=== PATIENT | female | born 1960 | race Caucasian/White ===

== ENCOUNTER 2019-12-08 08:06 | Outpatient (CLI) | payer OTHER, SELFPAY ==
--- NOTE | 2019-12-16 05:08 | SLEEP_ITS ---
Home Sleep Test DATE OF STUDY: 12/08/2019 REASON FOR THE STUDY: Hypersomnia, obstructive sleep apnea syndrome. HISTORY: This patient is a 59-year-old female, 5 feet 8 inches tall, weighing 232 pounds with a body mass index of 35.2. The office visit note indicates that she has type 2 diabetes mellitus, hyperlipidemia, and hypertension. The patient did not complete the sleep survey, so the specific problems associated with her sleep are not known. She is having this test as recommended by her physician. MEDICAL COMORBIDITIES: Diabetes mellitus type 2, hyperlipidemia, hypertension. MEDICATIONS: 1. Rosuvastatin 10 mg a day. 2. Glipizide XL 5 mg daily. 3. Metformin 500 mg, 2 tablets twice a day. 4. Invokana 300 mg daily. 5. Lisinopril 40 mg a day. 6. Aspirin 81 mg a day. HABITS: Former smoker. She does use alcohol. No mention of caffeine. DESCRIPTION OF THE STUDY: The [place] Sleepiness Scale was not completed. This is a portable home sleep test with 4 channel monitoring including respiratory effort channel, snoring channel, oxygen saturation channel, and heart rate channel. The study was scored using CMS guidelines. The apnea-hypopnea index is 14. The oxygen desaturation index is 13. The patient had 11 apneas, which were all obstructive, 86 hypopneas, 3282 snoring events and 96 desaturations spending 106 minutes below 88%, which was 24% of the study. Her minimum pulse was 72, maximum pulse was 130. Average pulse 101. The recording time was 7 hours and 7 minutes. IMPRESSION: This home sleep test shows at least mild to moderate obstructive sleep apnea syndrome with an apnea-hypopnea index of 14, significant desaturations spending 106 minutes or 24% of the study below 88% saturation and a minimum saturation of 66, which is severe hypoxemia. This patient should present to the sleep lab for a CPAP titration. She would not be a good candidate for a home sleep study as the office notes indicate that she is noncompliant and she did not complete the survey so a home CPAP event would not be ideal. The patient has an elevated body mass index and we would recommend striving to achieve ideal body mass index. Close clinical followup is recommended. COSTA HSU M.D. OUTSIDE MACHINIST APPRENTICE OUTSIDE MACHINIST APPRENTICE D I MT: Juan F
== END 2019-12-08 08:07 | disposition home or self-care (01) ==
LOC: ANHCSM 08:12
PROVIDERS: Visit Provider Family Medicine
DX: G47.33 Obstructive sleep apnea (adult) (pediatric) (principal)
CPT/HCPCS: 95806